=== PATIENT | female | born 1995 | race African-American/Black ===

== ENCOUNTER 2016-10-02 07:34 | Emergency (ER) | payer MEDICAID ==
[2016-10-02] MEDS ORDERED: Lidocaine 2% 10 ML Amp INJECT ONE (07:55)
[2016-10-02] MEDS ORDERED: Lidocaine 1% 30 ML SDV INJECT ONE (07:56)
[2016-10-02 07:59] VITALS: BP 145/91
--- NOTE | 2016-10-02 08:35 | EDM.PDOC ---
ED HPI Skin/Rash - General Chief Complaint: Laceration Stated Complaint: laceration to the right ventral wrist area Time Seen by Provider: 10/02/16 07:54 Source: Reports: Patient - History of Present Illness INITIAL COMMENTS - FREE TEXT/NARRATIVE: Patient states that she was moving a mirror this morning when she accidentally dropped it. It landed on the distal portion of her right ventral wrist lacerating her wrist transversely. She quickly jerked her arm back and banged the ulnar portion of the wrist on the counter causing a contusion. 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 [No Known Home Meds] 10/02/16 10/02/16 Past Medical History - Past Health History Medical/Surgical History: Denies Medical/Surgical History Social & Family History - Tobacco Use Smoking Status *Q: Never Smoker Second Hand Smoke Exposure: Yes - Alcohol Use Days Per Week of Alcohol Use: 0 - Recreational Drug Use Recreational Drug Use: No ED ROS GENERAL - Review of Systems Review Of Systems: ROS reveals no pertinent complaints other than HPI. Constitutional: Reports: no symptoms HEENT: Reports: No symptoms Respiratory: Reports: No Symptoms Cardiovascular: Reports: No symptoms Endocrine: Reports: no symptoms GI/Abdominal: Reports: No symptoms : Reports: no symptoms Musculoskeletal: Reports: no symptoms Skin: Reports: wound Neurological: Reports: No Symptoms Psychiatric: Reports: No symptoms Hematologic/Lymphatic: Reports: no symptoms Immunologic: Reports: no symptoms ED EXAM, SKIN/RASH Exam: See Below Exam Limited By: No limitations General Appearance: alert, WD/WN, no apparent distress Respiratory/Chest: no respiratory distress Cardiovascular: normal peripheral pulses Peripheral Pulses: 2+: brachial (L), brachial (R), radial (L), radial (R) Extremities: normal range of motion, normal capillary refill, arm pain, other ( pain and swelling to the right distal ulnar surface of the wrist.) Neurological: alert, oriented, normal cognition, normal gait, normal reflexes, no motor/sensory deficits Psychiatric: normal affect, normal mood Skin: Warm, Dry, Normal color, Wound/incision (7cm transverse laceration to the ventral surface of the right wrist.) Location, Skin: upper extremity, right ED SKIN PROCEDURES - Laceration/Wound Repair Right Upper Distal Ventral Wrist Lac/wound length in cm: 7 Appearance: superficial, linear, clean Distal NVT: neuro & vascular intact, no tendon injury Anesthetic type: local Local anesthesia - Lidocaine (Xylocaine): 1% plain Local anesthetic volume: other (10mL) Skin prep: providone-iodine (betadine) Exploration/Debridement/Repair: wound explored, explored to base, minimal debridement, minimally undermined, no foreign material found Closed with: sutures Suture size: 3-0 # of sutures: 13 Suture type: nylon, interrupted Drain placement: No Sterile dressing applied: nurse Tetanus status addressed: Yes Complications: No Course - Vital Signs Last Recorded V/S: Last Vital Signs Temp 36.3 C 10/02/16 07:40 Pulse 91 10/02/16 07:40 Resp 16 10/02/16 07:40 BP 145/91 H 10/02/16 07:40 Pulse Ox - Orders/Labs/Meds Meds: Medications Discontinued Medications Generic Name Dose Route Start Last Admin Trade Name Jaclyn PRN Reason Stop Dose Admin Lidocaine HCl 10 ml 10/02/16 07:55 Xylocaine-Mpf 2% (Sterile-Royal) INJECT 10/02/16 07:56 ONETIME ONE Lidocaine HCl 30 ml 10/02/16 07:56 10/02/16 08:04 Xylocaine-Mpf 1% INJECT 10/02/16 07:57 30 ml ONETIME ONE Administration Departure - Departure Time of Disposition: 08:40 Disposition: Home, Self-Care 01 Condition: good Clinical Impression: Puncture wound - injury Instructions: Laceration Care, Adult, [id number], Stitches, [place], or Adhesive Wound Closure, [id number] Forms: ED Department Discharge Additional Instructions: Return to clinic in 12-14 days for suture removal. Keep splint in place until sutures are removed. - Assessment/Plan Assessment:: Right wrist laceration Plan: wound sutured.
== END 2016-10-02 08:55 | disposition home or self-care (01) ==
LOC: VM.ED 07:34
DX: S61.511A Laceration without foreign body of right wrist, initial encounter (principal); W26.8XXA Contact with other sharp object(s), not elsewhere classified, initial encounter; Y92.009 Unspecified place in unspecified non-institutional (private) residence as the place of occurrence of the external cause
CPT/HCPCS: 12002; 99283; L3908

== ENCOUNTER 2018-08-16 06:30 | Emergency (ER) | payer MEDICAID ==
[2018-08-16 06:44] VITALS: BP 131/84
--- NOTE | 2018-08-16 08:08 | EDM.PDOC ---
ED HPI GENERAL MEDICAL PROBLEM - General Chief Complaint: General Time Seen by Provider: 08/16/18 06:56 Source of Information: Reports: Patient History Limitations: Reports: No Limitations - History of Present Illness INITIAL COMMENTS - FREE TEXT/NARRATIVE: Pt. presents to ER with complaints of breast irritation. She recently underwent breast reduction and noticed a small with object protruding from her R breast. She noticed with when she was rolling over in bed. She states that the area is causing her discomfort. Denies any erythema or discharge from the area. States that she has the breast reduction in July. Denies any fever or chills. Onset: Today Onset Date: 08/16/18 Location: Reports: Chest Right Breast Pain Score (Numeric/FACES): 9 - Related Data Allergies Allergy/AdvReac Type Severity Reaction Status Date / Time ondansetron [From Zofran] Allergy Cough Verified 08/16/18 06:39 Home Meds: Home Meds . 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 ED EXAM, GENERAL - Physical Exam Exam: See Below Exam Limited By: No Limitations General Appearance: Alert, WD/WN Respiratory/Chest: Other (small, white fiber noted in suture line on underside of breast, consistent with Vicril suture.) Course - Vital Signs Last Recorded V/S: Last Vital Signs Temp 36.6 C 08/16/18 06:40 Pulse 90 08/16/18 06:40 Resp 18 08/16/18 06:40 BP 131/84 08/16/18 06:40 Pulse Ox 99 08/16/18 06:40 Departure - Departure Time of Disposition: 07:10 Disposition: Home, Self-Care 01 Condition: Good Clinical Impression: Eroded suture - Discharge Information Instructions: Wound Check Referrals: Melany Ruiz DO [Primary Care Provider] - Forms: ED Department Discharge Additional Instructions: Pt. was reassured that this is a common post-op complaint and advised her to follow-up with her surgeon. Do not pick at incision Naproxen 500mg twice daily as needed for pain Apply warm pack to area to help with discomfort.
== END 2018-08-16 07:10 | disposition home or self-care (01) ==
LOC: VM.ED 06:30
DX: L76.82 Other postprocedural complications of skin and subcutaneous tissue (principal); Z88.8 Allergy status to other drugs, medicaments and biological substances; Z87.891 Personal history of nicotine dependence
CPT/HCPCS: 99283

== ENCOUNTER 2018-12-27 07:12 | Emergency (ER) | payer MEDICAID ==
[2018-12-27 07:24] VITALS: BP 126/81
--- NOTE | 2018-12-27 07:44 | EDM.PDOC ---
ED HPI GENERAL MEDICAL PROBLEM - General Chief Complaint: Respiratory Problem Stated Complaint: COUGH,SORE THROAT Time Seen by Provider: 12/27/18 07:20 Source of Information: Reports: Patient History Limitations: Reports: No Limitations - History of Present Illness INITIAL COMMENTS - FREE TEXT/NARRATIVE: Patient is in the emergency department with complaint of cough, sore throat, and body aches. Patient states that her symptoms started yesterday. She states she actually presented to the emergency department last night however left before being seen. She states that she went home had tea and tried to rest. However the patient at this months stating that she feels just especially last night. She presents to the emergency department further evaluation and treatment. She denies any nausea or vomiting, chest pain, shortness of breath, or increased swelling long-term use. She denies being around any individuals who have been ill recently Onset: Sudden Location: Reports: Generalized Severity: Mild Improves with: Reports: None Worsens with: Reports: None Associated Symptoms: Reports: No Other Symptoms - Related Data Allergies Allergy/AdvReac Type Severity Reaction Status Date / Time ondansetron [From Zofran] Allergy Cough Verified 12/27/18 07:25 Home Meds: Home Meds . 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: Musculoskeletal History: Reports: Back Pain, Chronic Social & Family History - Family History Family Medical History: Noncontributory - Tobacco Use Smoking Status *Q: Current Status Unknown - Caffeine Use Caffeine Use: Reports: Soda ED ROS GENERAL - Review of Systems Review Of Systems: See Below Constitutional: Reports: Fever, Chills, Malaise, Fatigue HEENT: Reports: No Symptoms Respiratory: Reports: No Symptoms Cardiovascular: Reports: No Symptoms Endocrine: Reports: No Symptoms GI/Abdominal: Reports: No Symptoms : Reports: No Symptoms Musculoskeletal: Reports: No Symptoms Skin: Reports: No Symptoms Neurological: Reports: No Symptoms Psychiatric: Reports: No Symptoms Hematologic/Lymphatic: Reports: No Symptoms Immunologic: Reports: No Symptoms ED EXAM, GENERAL - Physical Exam Exam: See Below Exam Limited By: No Limitations General Appearance: Alert, WD/WN, No Apparent Distress Ears: Normal External Exam, Normal Canal, Hearing Grossly Normal, Normal TMs Ear Exam: Bilateral Ear: Auricle Normal, Canal Normal, TM normal Nose: Normal Inspection, Normal Mucosa, No Blood Throat/Mouth: Normal Inspection, Normal Lips, Normal Teeth, Normal Oropharynx, Normal Voice, No Airway Compromise Head: Atraumatic, Normocephalic Neck: Normal Inspection, Supple, Non-Tender, Full Range of Motion Respiratory/Chest: No Respiratory Distress, Lungs Clear, Normal Breath Sounds, No Accessory Muscle Use, Chest Non-Tender Cardiovascular: Normal Peripheral Pulses, Regular Rate, Rhythm, No Edema GI/Abdominal: Normal Bowel Sounds, Soft, Non-Tender, No Abnormal Bruit Back Exam: Normal Inspection, Full Range of Motion Extremities: Normal Inspection, Normal Range of Motion, Non-Tender, No Pedal Edema, Normal Capillary Refill Neurological: Alert, Oriented, CN II-XII Intact, No Motor/Sensory Deficits Psychiatric: Normal Affect, Normal Mood Skin Exam: Warm, Dry, Intact, Normal Color Course - Vital Signs Last Recorded V/S: Last Vital Signs Temp 36.8 C 12/27/18 07:18 Pulse 76 12/27/18 07:18 Resp 18 12/27/18 07:18 BP 126/81 12/27/18 07:18 Pulse Ox 99 12/27/18 07:18 Departure - Departure Time of Disposition: 08:13 Disposition: Home, Self-Care 01 Clinical Impression: Viral illness - Discharge Information *PRESCRIPTION DRUG MONITORING PROGRAM REVIEWED*: Not Applicable *COPY OF PRESCRIPTION DRUG MONITORING REPORT IN PATIENT KYA: Not Applicable Instructions: Viral Illness, Adult Referrals: Lavinia Diallo ENERGY CONSERVATION SPECIALIST [Primary Care Provider] - Forms: ED Department Discharge Additional Instructions: 1. rest 2. increaese water intake 3. Can use salt water gargles to help with sore throat 4. Can take Tylenol ibuprofen as needed for pain and fever 5. Follow-up with primary PCP as needed if not better in 4 or 5 days 6. Call if any questions or concerns - Assessment/Plan Assessment:: 1. cough 2. body ache 3. headache 4. sore throat Plan: 1. rapid influenza swab. Results reviewed with the staff. 2. Education provided regarding OTC medications, rest, increase fluids, and follow up. 3. All questions and concerns addressed prior to discharge
== END 2018-12-27 08:16 | disposition home or self-care (01) ==
LOC: VM.ED 07:12
DX: B34.9 Viral infection, unspecified (principal); Z88.8 Allergy status to other drugs, medicaments and biological substances
CPT/HCPCS: 87804; 87804-59; 99283

== ENCOUNTER 2020-01-23 13:35 | Emergency (ER) | payer MEDICAID ==
[2020-01-23] MEDS ORDERED: Lidocaine 1% with EPINEPHrine 1:100,000 20 ML MDV INFILT ONE (13:47)
--- NOTE | 2020-01-23 13:50 | EDM.PDOC ---
ED HPI GENERAL MEDICAL PROBLEM - General Stated Complaint: LACERATION ON ARM Time Seen by Provider: 01/23/20 13:48 Source of Information: Reports: Patient History Limitations: Reports: No Limitations - History of Present Illness INITIAL COMMENTS - FREE TEXT/NARRATIVE: Patient comes emergency department today with complaints of a laceration to her right forearm. Just prior to arrival the patient was trying to open a door when the glass broke and cut her on the inside of her right forearm. This happened just prior to arrival. Her last tetanus immunization was within the last 5 years. She denies any paresthesias to her right hand. She denies any change in the functionality of her right hand. - Related Data Allergies Allergy/AdvReac Type Severity Reaction Status Date / Time ondansetron [From Zofran] Allergy Cough Verified 12/27/18 07:25 Home Meds: Home Meds . 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 ED EXAM, SKIN/RASH Exam: See Below Exam Limited By: No Limitations General Appearance: Alert, WD/WN, No Apparent Distress Respiratory/Chest: No Respiratory Distress Cardiovascular: Normal Peripheral Pulses Extremities: No: Normal Inspection (on the volar surface of the right forearm there are 2 linear lacerations. One is 4 cm and the other 3 CM. Able to flex and extend at the wrist appropriately as well as the hand. Good CMS. No contamination of the wound. ) Skin: Warm, Dry, Intact, Normal Color Course - Orders/Labs/Meds Orders: Active Orders 24 hr Category Date Time Status Forearm 2V Rt [CR] Stat Exams 01/23/20 14:11 Taken Sodium Chloride 0.9% [Saline Flush] Med 01/23/20 14:16 Active 10 ml FLUSH ASDIRECTED PRN Peripheral IV Insertion Adult [OM.PC] Stat Oth 01/23/20 14:16 Ordered Medication Orders Sodium Chloride (Saline Flush) 10 ml FLUSH ASDIRECTED PRN PRN Reason: Keep Vein Open Meds: Medications Generic Name Dose Route Start Last Admin Trade Name Jaclyn PRN Reason Stop Dose Admin Sodium Chloride 10 ml 01/23/20 14:16 Saline Flush FLUSH ASDIRECTED PRN Keep Vein Open Discontinued Medications Generic Name Dose Route Start Last Admin Trade Name Frecaesar PRN Reason Stop Dose Admin Cefazolin Sodium 2 gm 01/23/20 14:16 Ancef IVPUSH 01/23/20 14:17 ONETIME ONE Diphenhydramine HCl 25 mg 01/23/20 14:16 Benadryl IVPUSH 01/23/20 14:17 ONETIME ONE Lidocaine/Epinephrine 20 ml 01/23/20 13:47 Xylocaine 1% With Epinephrine 1:100,000 INFILT 01/23/20 13:48 ONETIME ONE Morphine Sulfate 4 mg 01/23/20 14:16 01/23/20 14:23 Morphine IVPUSH 01/23/20 14:17 4 mg ONETIME ONE Administration - Re-Assessments/Exams Free Text/Narrative Re-Assessment/Exam: 01/23/20 14:32 Initially the more lateral puncture wound did not have any bleeding or swelling. Although after looking at it manipulating the hand and having her do range of motion it suddenly started to swell in the very deep structures under the puncture wound. 1% lidocaine with epinephrine was used to anesthetize the local area and then I attempted to identify where the bleeding was coming from. Further examination through this very small laceration approximately 4 cm shows that it does extend into the fascia through the muscle and I cannot identify the bleeding which appears to be venous that is quite deep. She does have a good peripheral pulse and CMS I am able to control the bleeding with direct pressure and an pat wrap was applied. IV NS lock Diphenhydramine 25mg IVP Morphine 4mg IVp Ancef 2 grams IVP Xray of the right forearm due to the deep nature of the puncture wound. Radiology report pending. I did call and speak with Dr. Torres in the ER at [facility]. HPI er course findings and concers for vascular most likely venous deep injury with this puncture wound to the dominant hand shared with Dr. Torres. He accepted the patient in transfer at this time no new orders or guidance. I discussed the plan of care with the patient. She is understanding of my concern for injury to deep structures of the right distal forearm. She is understanding of this and her questions answered. Departure - Departure Time of Disposition: 14:30 Disposition: DC/Tfer to Acute Hospital 02 Clinical Impression: Puncture wound of forearm, complicated Qualifiers: Encounter type: initial encounter Laterality: right Qualified Code(s): S51.831A - Puncture wound without foreign body of right forearm, initial encounter - Discharge Information Forms: Interfacility Transfer GABY Additional Instructions: Do not eat your drink anything after leaving the ER. Go directly to [facility] ER to be seen by the ER providers there. - My Orders Last 24 Hours: My Active Orders 01/23/20 14:11 Forearm 2V Rt [CR] Stat 01/23/20 14:16 Sodium Chloride 0.9% [Saline Flush] 10 ml FLUSH ASDIRECTED PRN Peripheral IV Insertion Adult [OM.PC] Stat - Assessment/Plan Last 24 Hours: My Active Orders 01/23/20 14:11 Forearm 2V Rt [CR] Stat 01/23/20 14:16 Sodium Chloride 0.9% [Saline Flush] 10 ml FLUSH ASDIRECTED PRN Peripheral IV Insertion Adult [OM.PC] Stat Assessment:: Deep puncture wound to the right distal volar right forearm with concerns of deep injury to vascular structures. Superficial laceration to the right wrist as well. Plan: Transfer by private vehicle to [facility].
[2020-01-23] MEDS ORDERED: Sodium Chloride 0.9% 10 ML Syringe FLUSH PRN (14:16)
[2020-01-23] MEDS ORDERED: diphenhydrAMINE 50 MG/ML SDV IVPUSH ONE (14:16)
[2020-01-23] MEDS ORDERED: ceFAZolin 1 GM Vial IVPUSH ONE (14:16)
[2020-01-23] MEDS ORDERED: Morphine 10 MG/ML SDV IVPUSH ONE (14:16)
--- NOTE | 2020-01-23 15:04 | CR ---
[id number] RAD/RAD Forearm Right 2V EXAM: RAD Forearm Right 2V CLINICAL DATA: PUNCTURE WOUND COMPARISON: NO PREVIOUS SIMILAR EXAM IS AVAILABLE. FINDINGS: Tiny radiopaque soft tissue foreign bodies are seen at the level of the distal right radius anteriorly This likely corresponds to the puncture wound There is no fracture or dislocation. IMPRESSION: TINY RADIOPAQUE FOREIGN BODIES AT SITE OF INJURY Tex Goodrich MD 01/23/20 [id number] Thank you for allowing us to participate in the care of your patient.
[2020-01-23 17:08] VITALS: BP 118/78; PULSE 82
== END 2020-01-23 15:00 | disposition short-term general hospital (02) ==
LOC: VM.ED 13:35
DX: S51.831A Puncture wound without foreign body of right forearm, initial encounter (principal); S61.511A Laceration without foreign body of right wrist, initial encounter; Z88.8 Allergy status to other drugs, medicaments and biological substances; W25.XXXA Contact with sharp glass, initial encounter
CPT/HCPCS: 73090; 96374; 96375; 99283; 99284; J0690; J1200; J2270

== ENCOUNTER 2020-08-20 23:55 | Emergency (ER) | payer MEDICAID ==
[2020-08-21 00:33] VITALS: BP 152/93; PULSE 98
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
[2020-08-21] MEDS: HYDROmorphone 1 MG/ML Syringe IVPUSH ONE (00:39)
[2020-08-21 01:06] LABS: ANION GAP 17.5 mmol/L (5-15); CHLORIDE,CL 101 mmol/L (98-107); SODIUM,NA 138 mmol/L (136-145)
[2020-08-21] MEDS: Take Home: Acetaminophen/HYDROcodone 325-5 MG, 5 Tab Pack PO ONE (01:26)
== END 2020-08-21 01:35 | disposition home or self-care (01) ==
LOC: SUPCPDRO 23:55 → VM.ED 23:55
DX: O20.0 Threatened abortion (principal); Z88.8 Allergy status to other drugs, medicaments and biological substances
CPT/HCPCS: 36415; 80048; 84702; 85025; 96374; 99284; 99284-25; A9270-GY; J1170

== ENCOUNTER 2021-05-26 13:48 | Emergency (ER) | payer MEDICAID ==
[2021-05-26] MEDS ORDERED: Promethazine 25 MG/ML SDV IM ONE (14:14)
--- NOTE | 2021-05-26 14:20 | EDM.PDOC ---
ED HPI GENERAL MEDICAL PROBLEM - General Chief Complaint: General Stated Complaint: EMESIS, DEHYDRATED, HEADACHE Time Seen by Provider: 05/26/21 14:00 Source of Information: Reports: Patient History Limitations: Reports: No Limitations - History of Present Illness INITIAL COMMENTS - FREE TEXT/NARRATIVE: Patient presents emergency room today with ongoing nausea and vomiting and a dull headache that started this morning after she got up and drinking 5th of vodka last night. She states she is puked about 5 or 6 times this morning she denies any abdominal pain diarrhea. She states her headache is dull and throbbing a 5 out of 10 just generalized all over not the worst headache of her life. She has no other complaints at this time she denies any vomiting blood or retching and states she does not normally drink this much. Onset: Sudden Duration: Hour(s): Associated Symptoms: Reports: Headaches, Nausea/Vomiting. Denies: Confusion, Chest Pain, Cough, Diaphoresis, Fever/Chills, Shortness of Breath, Syncope, Weakness - Related Data Allergies Allergy/AdvReac Type Severity Reaction Status Date / Time ondansetron [From Zofran] Allergy Cough Verified 08/21/20 00:25 Home Meds: Home Meds . 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 Denies: Weakness, Diaphoresis HEENT: Reports: No Symptoms Respiratory: Reports: No Symptoms Cardiovascular: Reports: No Symptoms Endocrine: Reports: No Symptoms GI/Abdominal: Reports: Nausea, Vomiting. Denies: Abdominal Pain, Bloody Stool, Diarrhea, Decreased Appetite, Hematemesis, Hematochezia : Reports: No Symptoms Musculoskeletal: Reports: No Symptoms Skin: Reports: No Symptoms Neurological: Reports: Headache Psychiatric: Reports: No Symptoms Hematologic/Lymphatic: Reports: No Symptoms Immunologic: Reports: No Symptoms ED EXAM, GI/ABD - Physical Exam Exam: See Below Exam Limited By: No Limitations General Appearance: Alert, WD/WN, No Apparent Distress Eyes: Bilateral: Normal Appearance, EOMI Throat/Mouth: Normal Inspection, Normal Lips, Normal Teeth, Normal Gums, Normal Oropharynx, Normal Voice, No Airway Compromise, Other (mmm) Neck: Normal Inspection, Supple, Non-Tender, Full Range of Motion Respiratory/Chest: No Respiratory Distress, Lungs Clear, Normal Breath Sounds, No Accessory Muscle Use, Chest Non-Tender Cardiovascular: Normal Peripheral Pulses, Regular Rate, Rhythm, No Edema, No Gallop, No JVD, No Murmur, No Rub GI/Abdominal Exam: Normal Bowel Sounds, Soft, Non-Tender, No Organomegaly, No D istention. No: Guarding, Rigid, Rebound, Tender Extremities: Normal Inspection, Normal Range of Motion, Non-Tender, No Pedal Edema, Normal Capillary Refill Neurological: Alert, Oriented, CN II-XII Intact, Normal Cognition, Normal Gait, No Motor/Sensory Deficits Psychiatric: Normal Affect, Normal Mood Skin Exam: Warm, Dry, Intact, Normal Color, No Rash Course - Vital Signs Text/Narrative:: Patient nontachycardic moist mucous membranes good skin turgor no signs of dehydration we will give 12.5 mg Phenergan IM discharged with Phenergan 25 mg p.o. 1 tablet every 4-6 hours as needed number of 10 - Orders/Labs/Meds Orders: Active Orders 24 hr Category Date Time Status Promethazine [Phenergan] Med 05/26/21 14:14 Once 12.5 mg IM ONETIME ONE Medication Orders Promethazine HCl (Promethazine 25 Mg/Ml Sdv) 12.5 mg IM ONETIME ONE Stop: 05/26/21 14:15 Meds: Medications Generic Name Dose Route Start Last Admin Trade Name Freq PRN Reason Stop Dose Admin Promethazine HCl 12.5 mg 05/26/21 14:14 Promethazine 25 Mg/Ml Sdv IM 05/26/21 14:15 ONETIME ONE Departure - Departure Time of Disposition: 12:45 Disposition: Home, Self-Care 01 Condition: Good Clinical Impression: Nausea and vomiting, Headache - Discharge Information *PRESCRIPTION DRUG MONITORING PROGRAM REVIEWED*: No *COPY OF PRESCRIPTION DRUG MONITORING REPORT IN PATIENT KYA: No Referrals: Lavinia Diallo NP [Primary Care Provider] - Forms: ED Department Discharge - Problem List & Annotations (1) Headache SNOMED Code(s): 93736518 Code(s): R51.9 - HEADACHE, UNSPECIFIED Status: Acute Current Visit: Yes (2) Nausea and vomiting SNOMED Code(s): 17052592 Code(s): R11.2 - NAUSEA WITH VOMITING, UNSPECIFIED Status: Acute Current Visit: Yes - My Orders Last 24 Hours: My Active Orders 05/26/21 14:14 Promethazine [Phenergan] 12.5 mg IM ONETIME ONE - Assessment/Plan Last 24 Hours: My Active Orders 05/26/21 14:14 Promethazine [Phenergan] 12.5 mg IM ONETIME ONE
[2021-05-26 16:00] VITALS: BP 139/98; PULSE 66
== END 2021-05-26 14:24 | disposition home or self-care (01) ==
LOC: VM.ED 13:48
DX: R11.2 Nausea with vomiting, unspecified (principal); R51.9 Headache, unspecified; Z88.8 Allergy status to other drugs, medicaments and biological substances
CPT/HCPCS: 99283

== ENCOUNTER 2021-06-13 12:48 | Emergency (ER) | payer OTHER, MEDICAID ==
[2021-06-13] MEDS ORDERED: Proparacaine 0.5% Ophth Soln 15 ML Bottle EYELF ONE (13:04)
[2021-06-13] MEDS ORDERED: Fluorescein 1 MG Ophth Strip EYELF ONE (13:04)
[2021-06-13 13:29] VITALS: BP 131/79; PULSE 78
--- NOTE | 2021-06-14 03:17 | EDM.PDOC ---
ED HPI GENERAL MEDICAL PROBLEM - General Chief Complaint: Eye Problems Stated Complaint: CHEMICAL IN EYES Time Seen by Provider: 06/13/21 12:52 Source of Information: Reports: Patient History Limitations: Reports: No Limitations - History of Present Illness INITIAL COMMENTS - FREE TEXT/NARRATIVE: PtRoss presents to ER with complaints of pain to R eye. She states that she got some quaternary cleaning spray in the R eye shortly before arriving to ER. Primary ingredient is alcohol. She states that the instructions advised her to flush the eye for 15-20 min post exposure which she did. She states that she is continuing to have eye discomfort. Denies any acute vision loss or change. 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 ED EXAM GENERAL W FULL EYE - Physical Exam Exam: See Below Exam Limited By: No Limitations General Appearance: Alert, WD/WN, No Apparent Distress Eye Exam: Bilateral Eye: Corneal Abrasion (6 o clock position), EOMI, PERRL Eyelids: Bilateral: Normal Appearance Cornea Exam: Right: Corneal Abrasion, Examined with Flourescein Extraocular Movements: Bilateral: Intact Pupils: Normal Accommodation Pupillary Size: Bilateral: 3 mm Pupillary Reaction: Bilateral: Brisk Comments: No significant erythema or chemosis noted to R eye. Florescin exam of R eye performed. There was evidence of some corneal abrasion to the interior conjunctivae. No obvious retained foreign body to underside of eyelid or surface of eye. Course - Vital Signs Last Recorded V/S: Last Vital Signs Temp 36.6 C 06/13/21 12:52 Pulse 78 06/13/21 12:52 Resp 18 06/13/21 12:52 BP 131/79 06/13/21 12:52 Pulse Ox 97 06/13/21 12:52 - Orders/Labs/Meds Meds: Medications Discontinued Medications Generic Name Dose Route Start Last Admin Trade Name Jaclyn PRN Reason Stop Dose Admin Fluorescein Sodium 1 mg 06/13/21 13:04 06/13/21 13:30 Fluorescein 1 Mg Ophth Strip EYELF 06/13/21 13:05 1 mg ONETIME ONE Administration Proparacaine HCl 1 ml 06/13/21 13:04 06/13/21 13:30 Proparacaine 0.5% Ophth Soln 15 Ml Bottle EYELF 06/13/21 13:05 1 ml ONETIME ONE Administration Departure - Departure Time of Disposition: 13:30 Disposition: Home, Self-Care 01 Clinical Impression: Corneal abrasion, Chemical conjunctivitis - Discharge Information Instructions: Proparacaine ophthalmic solution, Polymyxin B; Trimethoprim eye drops, solution, Chemical Conjunctivitis, Adult, [id number] Referrals: Lavinia Diallo CERTIFIED ADAPTED PHYSICAL EDUCATOR [Primary Care Provider] - Forms: ED Department Discharge Additional Instructions: Home to rest. Off work today. Rest with your eyes closed today as much as possible. Polytrim drops 1 drop to R eye 5 times per day for 7 days You can use the Proparacaine numbing drops every 6 hours or so for a couple of days to help with the pain. Follow-up at eye clinic of choice within the next 1-2 days if not gradually improving. Return to ER if you have any vision loss or change. - Problem List Review Problem List Initiated/Reviewed/Updated: Yes - Assessment/Plan Plan: No further flushing of the eye was performed, as she had done so for approx. 15- 20 min prior to coming to ER. She was found to have a corneal abrasion to the inferior conjunctiva, likely from attempting to hold eye open. Pt. was started on polytrim drops 1 drop to eye 5 times a day for a week. She was provided with the rest of her small bottle of proparacaine to use for the next few days for discomfort. Advised to follow-up in eye clinic within the next few days if not gradually improving/getting worse or if she has any acute vision loss or change.
== END 2021-06-13 13:35 | disposition home or self-care (01) ==
LOC: VM.ED 12:48
DX: S05.01XA Injury of conjunctiva and corneal abrasion without foreign body, right eye, initial encounter (principal); H10.211 Acute toxic conjunctivitis, right eye; Z88.8 Allergy status to other drugs, medicaments and biological substances; W22.09XA Striking against other stationary object, initial encounter
CPT/HCPCS: 99283

== ENCOUNTER 2021-06-23 08:00 | Emergency (ER) | payer MEDICAID ==
[2021-06-23] MEDS ORDERED: Ketorolac 30 MG/ML SDV IM ONE (08:20)
[2021-06-23] MEDS ORDERED: Orphenadrine 60 MG/2 ML Inj IM ONE (08:20)
--- NOTE | 2021-06-23 08:29 | EDM.PDOC ---
ED HPI GENERAL MEDICAL PROBLEM - General Chief Complaint: Back Pain or Injury Stated Complaint: BACK PAIN Time Seen by Provider: 06/23/21 08:15 Source of Information: Reports: Patient History Limitations: Reports: No Limitations - History of Present Illness INITIAL COMMENTS - FREE TEXT/NARRATIVE: Josselin is a 26 year old who presents to ER with complaints of back spasms. States awoke this am around 0600, felt discomfort and tightness in her neck. When got out of bed, lower back cramped up and is now having pain and difficulty moving. No history of any back concerns. Did not do any heavy lifting, twisting or have a change in her routine yesterday. Has not taken any meds or tried ice or heat. Has had epidural injections in her back with having children, questions if related. No recent injections or treatments tho. No numbness or tingling in to her legs. No weakness in legs. Hurts to sit or lay down. Pain is localized to left lower lumbar region. Onset: Today, Sudden Duration: Hour(s):, Constant Location: Reports: Back Quality: Reports: Throbbing Severity: Moderate Improves with: Reports: Rest Worsens with: Reports: Movement Associated Symptoms: Reports: No Other Symptoms - Related Data Allergies Allergy/AdvReac Type Severity Reaction Status Date / Time ondansetron [From Zofran] Allergy Cough Verified 06/13/21 13:26 Home Meds: Home Meds Meloxicam [Mobic] 7.5 mg PO DAILY 06/13/21 [History] Promethazine [Phenergan] 25 mg PO Q6H PRN 06/13/21 [History] Cyclobenzaprine [Flexeril] 10 mg PO TID PRN #21 tab 06/23/21 [Rx] Ketorolac [Toradol] 10 mg PO Q6H PRN #20 tab 06/23/21 [Rx] Past Medical History - Past Health History Medical/Surgical History: Denies 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: Musculoskeletal History: Reports: Back Pain, Chronic - Infectious Disease History Infectious Disease History: Reports: Herpes, Human Papilloma Virus (HPV) - Past Surgical History Female Surgical History: Reports: Breast Reduction Social & Family History - Family History Family Medical History: No Pertinent Family History - Tobacco Use Tobacco Use Status *Q: Unknown Ever Used Tobacco - Caffeine Use Caffeine Use: Reports: Soda ED ROS GENERAL - Review of Systems Review Of Systems: See Below Constitutional: Denies: Fever, Chills, Malaise, Weakness, Fatigue, Decreased Appetite HEENT: Reports: No Symptoms Respiratory: Denies: Shortness of Breath Cardiovascular: Denies: Chest Pain, Lightheadedness Endocrine: Denies: Fatigue GI/Abdominal: Denies: Abdominal Pain, Nausea, Vomiting : Denies: Dysuria, Flank Pain Musculoskeletal: Reports: Neck Pain, Back Pain, Muscle Pain, Muscle Stiffness Skin: Reports: No Symptoms Neurological: Denies: Weakness Psychiatric: Reports: No Symptoms ED EXAM,LOWER BACK PAIN/INJURY - Physical Exam Exam: See Below Exam Limited By: No Limitations General Appearance: Alert, WD/WN, Mild Distress Ears: Normal External Exam, Normal TMs Nose: Normal Inspection, Normal Mucosa, No Blood Throat/Mouth: Normal Inspection, Normal Oropharynx Head: Normocephalic Neck: Normal Inspection, Supple, Non-Tender Respiratory/Chest: No Respiratory Distress, Lungs Clear, Normal Breath Sounds Back Exam: Normal Inspection, Decreased Range of Motion, Muscle Spasm, Paraspinal Tenderness (left paraspinal muscle spasm/tenderness) Extremities: Normal Inspection, Normal Range of Motion, Other (strengths are equal in lower extremities) Neurological: Alert Skin Exam: Warm, Dry Course - Orders/Labs/Meds Meds: Medications Discontinued Medications Generic Name Dose Route Start Last Admin Trade Name Freq PRN Reason Stop Dose Admin Ketorolac Tromethamine 30 mg 06/23/21 08:20 Ketorolac 30 Mg/Ml Sdv IM 06/23/21 08:21 ONETIME ONE Orphenadrine Citrate 60 mg 06/23/21 08:20 Orphenadrine 60 Mg/2 Ml Inj IM 06/23/21 08:21 ONETIME ONE - Re-Assessments/Exams Free Text/Narrative Re-Assessment/Exam: 06/23/21 08:32 Injections given. Discharge instructions discussed with patient. Will start Flexeril and Toradol. Advised of potential drowsiness with Flexeril. Ice or heat to back. Stretching exercises. Follow up with usual provider if pain persists. Departure - Departure Time of Disposition: 08:34 Disposition: Home, Self-Care 01 Condition: Fair Clinical Impression: Spasm of lumbar paraspinous muscle - Discharge Information *PRESCRIPTION DRUG MONITORING PROGRAM REVIEWED*: No *COPY OF PRESCRIPTION DRUG MONITORING REPORT IN PATIENT KYA: No Prescriptions: Cyclobenzaprine [Flexeril] 10 mg PO TID PRN #21 tab PRN Reason: Muscle Spasm - Painful Ketorolac [Toradol] 10 mg PO Q6H PRN #20 tab PRN Reason: Muscle Spasm - Painful Instructions: Muscle Cramps and Spasms Referrals: Lavinia Diallo SYSTEM DEVELOPER ASSOCIATE MANAGER [Primary Care Provider] - Forms: ED Department Discharge Additional Instructions: 1. Rest 2. Stretch back as much as able 3. Ice or heat to back frequently today 4. Toradol 10 mg every 6 hours as needed for pain 5. Flexeril 10 mg every 8 hours as needed for muscle spasms 6. Follow up with primary care provider for persisting concerns.
[2021-06-23 16:40] VITALS: BP 147/97; PULSE 90
== END 2021-06-23 09:00 | disposition home or self-care (01) ==
LOC: VM.ED 08:00
DX: M62.830 Muscle spasm of back (principal); Z88.8 Allergy status to other drugs, medicaments and biological substances
CPT/HCPCS: 96372; 99283; J1885; J2360

== ENCOUNTER 2021-07-30 09:46 | Emergency (ER) | payer MEDICAID ==
[2021-07-30 10:20] VITALS: BP 147/97; PULSE 89
== END 2021-07-30 10:32 | disposition home or self-care (01) ==
LOC: VM.ED 09:46
DX: S09.90XA Unspecified injury of head, initial encounter (principal); F10.10 Alcohol abuse, uncomplicated; Z88.8 Allergy status to other drugs, medicaments and biological substances; Y04.0XXA Assault by unarmed brawl or fight, initial encounter
CPT/HCPCS: 99283

== ENCOUNTER 2022-08-03 12:01 | Emergency (ER) | payer MEDICAID ==
[2022-08-03 12:01] VITALS: BP 136/97; PULSE 98
== END 2022-08-03 13:45 | disposition home or self-care (01) ==
LOC: VM.ED 12:01
DX: S99.921A Unspecified injury of right foot, initial encounter (principal); Z88.8 Allergy status to other drugs, medicaments and biological substances; Y04.0XXA Assault by unarmed brawl or fight, initial encounter; Y92.512 Supermarket, store or market as the place of occurrence of the external cause
CPT/HCPCS: 73120-RT; 73620-RT; 99283